=== PATIENT | female | born 1960 | race Native Hawaiian/Other Pacific Islander ===

== ENCOUNTER 2021-05-13 18:47 | Emergency (ER) | payer OTHER ==
[~2021-05-13 18:47] MED LIST: INDOCIN50 MG PO; NO HOME MEDICATIONS
[2021-05-13] MEDS ORDERED: MASON NATURAL500 MG PO (19:19)
[2021-05-13 20:04] LABS: BASO # 0.04 (0.02-0.10); EOS # 0.32 (0.04-0.40); EOS % 3.9 % (1.0-5.0); HEMATOCRIT 40.7 % (37.0-47.0); HEMOGLOBIN 13.5 g/dL (12.5-16.0); LYMPH# 1.57 (1.50-4.00); MEAN CELL VOLUME 84 fl (78-100); MEAN CORPUSCULAR HEMOGLOBIN 28 pg (27-31); MEAN CORPUSCULAR HGB CONC 33 g/dL (33-37); MEAN PLATELET VOLUME 9.8 fl (7.4-10.4); MONO # 0.52 (0.20-0.80); NEU # 5.64 (1.40-6.50); PLATELET COUNT 247 K/mm3 (130-400); RED BLOOD COUNT 4.85 M/mm3 (4.10-5.30); RED CELL DISTRIBUTION WIDTH 12.2 % (11.5-14.5); WHITE BLOOD COUNT 8.1 K/mm3 (4.8-10.8)
[2021-05-13 20:23] LABS: ALBUMIN 3.8 g/dL (3.5-5.0)
[2021-05-13 20:24] LABS: POTASSIUM 3.8 mmol/L (3.5-5.1)
[2021-05-13 20:25] LABS: CALCIUM 9.4 mg/dL (8.3-10.5)
[2021-05-13 20:26] LABS: TOTAL PROTEIN 8.2 g/dL (6.4-8.3)
[2021-05-13 20:28] LABS: TOTAL BILIRUBIN 0.6 mg/dL (0.2-1.2)
[2021-05-14 00:06] LABS: POTASSIUM 3.8 mmol/L (3.5-5.1)
[2021-05-14 00:07] LABS: CALCIUM 8.9 mg/dL (8.3-10.5)
[2021-05-14 01:48] VITALS: BP 145/75
[2021-05-14 04:42] LABS: URINE APPEARANCE CLOUDY; URINE BILIRUBIN NEGATIVE (NEGATIVE); URINE BLOOD TRACE (NEGATIVE); URINE COLOR YELLOW; URINE KETONE 1+ (NEGATIVE); URINE LEUKOCYTE ESTERASE 1+ (NEGATIVE); URINE NITRATE POSITIVE (NEGATIVE); URINE PROTEIN(semi-quant) TRACE mg/dL (NEGATIVE); URINE UROBILINOGEN NORMAL (NORMAL); URINE WBC 16-30 /hpf (0-3)
[2021-05-14 04:43] LABS: URINE MUCUS PRESENT (NOT PRESENT)
== END 2021-05-14 01:48 | disposition home or self-care (01) ==
LOC: ED 18:47
PROVIDERS: Nurse Practitioner Family
DX: S92.351A Displaced fracture of fifth metatarsal bone, right foot, initial encounter for closed fracture (principal); S37.009A Unspecified injury of unspecified kidney, initial encounter; E11.65 Type 2 diabetes mellitus with hyperglycemia; R74.8 Abnormal levels of other serum enzymes; M25.511 Pain in right shoulder; I10 Essential (primary) hypertension; E66.01 Morbid (severe) obesity due to excess calories; Z68.43 Body mass index [BMI] 50.0-59.9, adult; W01.0XXA Fall on same level from slipping, tripping and stumbling without subsequent striking against object, initial encounter; Y92.009 Unspecified place in unspecified non-institutional (private) residence as the place of occurrence of the external cause
CPT/HCPCS: J7030; L4386

== ENCOUNTER → 2021-05-29 | Outpatient (CLI) | payer OTHER ==
[~2021-05-29] MED LIST changes: +MASON NATURAL500 MG PO
[2021-05-29 17:16] LABS: URINE APPEARANCE HAZY; URINE COLOR YELLOW
[2021-05-29 17:17] LABS: URINE BILIRUBIN NEGATIVE (NEGATIVE); URINE BLOOD NEGATIVE (NEGATIVE); URINE KETONE NEGATIVE (NEGATIVE); URINE LEUKOCYTE ESTERASE 1+ (NEGATIVE); URINE NITRATE POSITIVE (NEGATIVE); URINE PROTEIN(semi-quant) 2+ mg/dL (NEGATIVE); URINE UROBILINOGEN NORMAL (NORMAL); URINE WBC 16-30 /hpf (0-3)
== END ==
LOC: LAB 15:54
PROVIDERS: Physician Assistant
DX: R74.8 Abnormal levels of other serum enzymes (principal); W19.XXXD Unspecified fall, subsequent encounter